=== PATIENT | male | born 1985 | race Two or more races ===

== ENCOUNTER → 2018-10-16 | Outpatient (CLI) | payer OTHER | END | disposition home or self-care (01) | LOC: ECT 09:15 | DX: F33.2 Major depressive disorder, recurrent severe without psychotic features (principal); G47.33 Obstructive sleep apnea (adult) (pediatric); E11.9 Type 2 diabetes mellitus without complications; I10 Essential (primary) hypertension; K76.0 Fatty (change of) liver, not elsewhere classified ==

== ENCOUNTER 2018-10-31 08:35 | Outpatient (RCR) | payer OTHER ==
[~2018-10-31] VITALS: Ht 188 cm; Wt 187.8 kg
[2018-10-31] MEDS ORDERED: Succinylcholine 20mg/ml 10ml vial ONE ×2 (08:36)
[2018-10-31] MEDS ORDERED: Methohexital Sodium 500mg Vial IVP ONE (08:36)
[2018-10-31] MEDS ORDERED: Methohexital Sodium Syr 100mg/10ml IVP ONE (08:36)
[2018-10-31] MEDS ORDERED: NS 500ML ONE ×2 (08:36)
[2018-10-31] MEDS ORDERED: Ketorolac 60mg Inj IM ONE ×2 (08:36)
[2018-10-31] MEDS ORDERED: Midazolam 2mg/2ml Inj ONE ×2 (08:36)
[2018-10-31 09:48] VITALS: BP 136/85
[2018-10-31] MEDS ORDERED: Ketorolac 30mg Inj IV SCH (10:03)
[2018-10-31 10:05] VITALS: BP 173/59
[2018-10-31 10:10] VITALS: BP 192/76
[2018-10-31 10:15] VITALS: BP 159/69
[2018-10-31 10:20] VITALS: BP 167/64
[2018-10-31 13:07] VITALS: BP 136/85
[2018-11-02] MEDS ORDERED: Succinylcholine 20mg/ml 10ml vial ONE (07:00)
[2018-11-02] MEDS ORDERED: Methohexital Sodium Syr 100mg/10ml IVP ONE (07:00)
[2018-11-02] MEDS ORDERED: NS 500ML ONE (07:00)
[2018-11-02] MEDS ORDERED: Midazolam 2mg/2ml Inj ONE (07:00)
[2018-11-02] MEDS ORDERED: Ketorolac 60mg Inj IM ONE (07:00)
[2018-11-02 09:46] VITALS: BP 139/81
[2018-11-02 10:00] VITALS: BP 154/68
[2018-11-02 10:05] VITALS: BP 164/54
[2018-11-02 10:10] VITALS: BP 141/70
[2018-11-02 10:15] VITALS: BP 154/73
[2018-11-05] MEDS ORDERED: Succinylcholine 20mg/ml 10ml vial ONE (08:00)
[2018-11-05] MEDS ORDERED: Midazolam 2mg/2ml Inj ONE (08:00)
[2018-11-05] MEDS ORDERED: Ketorolac 60mg Inj IM ONE (08:00)
[2018-11-05] MEDS ORDERED: Methohexital Sodium Syr 100mg/10ml IVP ONE (08:00)
[2018-11-05] MEDS ORDERED: NS 500ML ONE (08:00)
[2018-11-05 10:32] VITALS: BP 149/76
[2018-11-05 10:45] VITALS: BP 179/70
[2018-11-05 10:50] VITALS: BP 163/68
[2018-11-05 10:55] VITALS: BP 179/73
[2018-11-05 11:00] VITALS: BP 171/85
[2018-11-07 07:04] VITALS: BP 162/95
[2018-11-07 07:20] VITALS: BP 146/48
[2018-11-07 07:25] VITALS: BP 139/80
[2018-11-07 07:30] VITALS: BP 136/48
[2018-11-07 07:35] VITALS: BP 141/58
[2018-11-07] MEDS ORDERED: Midazolam 2mg/2ml Inj ONE (08:00)
[2018-11-07] MEDS ORDERED: Methohexital Sodium Syr 100mg/10ml IVP ONE (08:00)
[2018-11-07] MEDS ORDERED: NS 500ML ONE (08:00)
[2018-11-07] MEDS ORDERED: Succinylcholine 20mg/ml 10ml vial ONE (08:00)
[2018-11-07] MEDS ORDERED: Ketorolac 60mg Inj IM ONE (08:00)
[2018-11-09 09:55] VITALS: BP 163/87
[2018-11-09 10:20] VITALS: BP 172/87
[2018-11-09 10:25] VITALS: BP 143/38
[2018-11-09 10:30] VITALS: BP 156/60
[2018-11-09 10:35] VITALS: BP 162/82
[2018-11-12] MEDS ORDERED: NS 500ML ONE (06:00)
[2018-11-12] MEDS ORDERED: Midazolam 2mg/2ml Inj ONE (06:00)
[2018-11-12] MEDS ORDERED: Ketorolac 60mg Inj IM ONE (06:00)
[2018-11-12] MEDS ORDERED: Succinylcholine 20mg/ml 10ml vial ONE (06:00)
[2018-11-12] MEDS ORDERED: Methohexital Sodium Syr 100mg/10ml IVP ONE (06:00)
[2018-11-12 11:48] VITALS: BP 138/63
[2018-11-12] MEDS ORDERED: Atropine Sulfate 0.4mg/ml inj IVP PRN (12:14)
[2018-11-12 12:15] VITALS: BP 142/41
[2018-11-12 12:20] VITALS: BP 138/65
[2018-11-12 12:25] VITALS: BP 148/74
[2018-11-12 12:30] VITALS: BP 148/74
[2018-11-14] MEDS ORDERED: Midazolam 2mg/2ml Inj ONE (06:00)
[2018-11-14] MEDS ORDERED: Midazolam HCl 50mg/10ml vial IV ONE (07:00)
[2018-11-14] MEDS ORDERED: Succinylcholine 20mg/ml 10ml vial ONE (07:00)
[2018-11-14] MEDS ORDERED: Methohexital Sodium Syr 100mg/10ml IVP ONE (07:00)
[2018-11-14] MEDS ORDERED: NS 500ML ONE (07:00)
[2018-11-14] MEDS ORDERED: Ketorolac 60mg Inj IM ONE (07:00)
[2018-11-14 10:29] VITALS: BP 169/84
[2018-11-14 10:55] VITALS: BP 188/85
[2018-11-14 11:00] VITALS: BP 178/86
[2018-11-14 11:05] VITALS: BP 177/88
[2018-11-14 11:10] VITALS: BP 173/81
[2018-11-16] MEDS ORDERED: Methohexital Sodium Syr 100mg/10ml IVP ONE (07:00)
[2018-11-16] MEDS ORDERED: NS 500ML ONE (07:00)
[2018-11-16] MEDS ORDERED: Ketorolac 60mg Inj IM ONE (07:00)
[2018-11-16] MEDS ORDERED: Succinylcholine 20mg/ml 10ml vial ONE (07:00)
[2018-11-16] MEDS ORDERED: Midazolam 2mg/2ml Inj ONE (07:00)
[2018-11-16 10:25] VITALS: BP 156/80
[2018-11-16] MEDS ORDERED: Atropine Sulfate 0.4mg/ml inj IVP PRN (10:48)
[2018-11-16 10:50] VITALS: BP 170/67
[2018-11-16 10:55] VITALS: BP 156/70
[2018-11-16 11:00] VITALS: BP 158/74
[2018-11-16 11:05] VITALS: BP 152/68
== END 2018-11-18 | disposition home or self-care (01) ==
LOC: ECT 08:35
DX: F33.2 Major depressive disorder, recurrent severe without psychotic features (principal); G47.33 Obstructive sleep apnea (adult) (pediatric); I10 Essential (primary) hypertension; E11.9 Type 2 diabetes mellitus without complications; K76.0 Fatty (change of) liver, not elsewhere classified
CPT/HCPCS: 90870; J0330; J2250; J2405; J3490; J7040

== ENCOUNTER 2018-11-19 06:22 | Outpatient (RCR) | payer OTHER ==
[~2018-11-19] VITALS: Ht 188 cm; Wt 187.8 kg
[2018-11-19] MEDS ORDERED: Methohexital Sodium Syr 100mg/10ml IVP ONE (06:23)
[2018-11-19] MEDS ORDERED: Midazolam 2mg/2ml Inj ONE ×2 (06:23)
[2018-11-19] MEDS ORDERED: NS 500ML ONE ×2 (06:23)
[2018-11-19] MEDS ORDERED: Glycopyrrolate 0.2mg/ml 1ml Vial ONE ×2 (06:23)
[2018-11-19] MEDS ORDERED: Ketorolac 60mg Inj IM ONE ×2 (06:23)
[2018-11-19] MEDS ORDERED: Succinylcholine 20mg/ml 10ml vial ONE ×2 (06:23)
[2018-11-19 10:24] VITALS: BP 163/90
[2018-11-19 10:45] VITALS: BP 183/81
[2018-11-19 10:50] VITALS: BP 168/75
[2018-11-19 10:55] VITALS: BP 169/88
[2018-11-19 11:00] VITALS: BP 171/83
[2018-11-19 11:05] VITALS: BP 160/90
[2018-11-21 07:35] VITALS: BP 168/98
[2018-11-21 07:50] VITALS: BP 185/78
[2018-11-21 07:55] VITALS: BP 173/82
[2018-11-21 08:00] VITALS: BP 175/72
[2018-11-21] MEDS ORDERED: Succinylcholine 20mg/ml 10ml vial ONE (08:00)
[2018-11-21] MEDS ORDERED: Ketorolac 60mg Inj IM ONE (08:00)
[2018-11-21] MEDS ORDERED: Methohexital Sodium Syr 100mg/10ml IVP ONE (08:00)
[2018-11-21] MEDS ORDERED: Midazolam 2mg/2ml Inj ONE (08:00)
[2018-11-21] MEDS ORDERED: NS 500ML ONE (08:00)
[2018-11-21 08:05] VITALS: BP 177/79
[2018-11-23] MEDS ORDERED: Succinylcholine 20mg/ml 10ml vial ONE (09:00)
[2018-11-23] MEDS ORDERED: Methohexital Sodium Syr 100mg/10ml IVP ONE (09:00)
[2018-11-23] MEDS ORDERED: Midazolam 2mg/2ml Inj ONE (09:00)
[2018-11-23] MEDS ORDERED: NS 500ML ONE (09:00)
[2018-11-23] MEDS ORDERED: Ketorolac 60mg Inj IM ONE (09:00)
[2018-11-23] MEDS ORDERED: Glycopyrrolate 0.2mg/ml 1ml Vial ONE (09:00)
[2018-11-23 10:16] VITALS: BP 160/93
[2018-11-23 10:30] VITALS: BP 190/85
[2018-11-23 10:35] VITALS: BP 167/97
[2018-11-23 10:40] VITALS: BP 192/80
[2018-11-23 10:45] VITALS: BP 164/78
[2018-11-26] MEDS ORDERED: NS 500ML ONE (07:00)
[2018-11-26] MEDS ORDERED: Midazolam 2mg/2ml Inj ONE (07:00)
[2018-11-26] MEDS ORDERED: Methohexital Sodium Syr 100mg/10ml IVP ONE (07:00)
[2018-11-26] MEDS ORDERED: Ketorolac 60mg Inj IM ONE (07:00)
[2018-11-26] MEDS ORDERED: Succinylcholine 20mg/ml 10ml vial ONE (07:00)
[2018-11-26] MEDS ORDERED: Glycopyrrolate 0.2mg/ml 1ml Vial ONE (07:00)
[2018-11-26 10:42] VITALS: BP 154/89
[2018-11-26 11:00] VITALS: BP 180/89
[2018-11-26 11:05] VITALS: BP 173/80
[2018-11-26 11:10] VITALS: BP 155/77
[2018-11-26 11:15] VITALS: BP 169/68
[2018-11-28 11:31] VITALS: BP 164/87
[2018-11-28 11:50] VITALS: BP 162/78
[2018-11-28 11:55] VITALS: BP 155/90
[2018-11-28 12:00] VITALS: BP 160/71
[2018-11-28 12:05] VITALS: BP 162/76
[2018-12-05] MEDS ORDERED: Glycopyrrolate 0.2mg/ml 1ml Vial ONE (07:00)
[2018-12-05] MEDS ORDERED: Succinylcholine 20mg/ml 10ml vial ONE (07:00)
[2018-12-05] MEDS ORDERED: Midazolam 2mg/2ml Inj ONE (07:00)
[2018-12-05] MEDS ORDERED: Methohexital Sodium Syr 100mg/10ml IVP ONE (07:00)
[2018-12-05] MEDS ORDERED: NS 500ML ONE (07:00)
[2018-12-05] MEDS ORDERED: Ketorolac 60mg Inj IM ONE (07:00)
[2018-12-05 10:02] VITALS: BP 165/89
[2018-12-05 10:15] VITALS: BP 168/91
[2018-12-05 10:20] VITALS: BP 170/97
[2018-12-05 10:25] VITALS: BP 180/82
[2018-12-05 10:30] VITALS: BP 181/92
== END 2018-12-18 | disposition home or self-care (01) ==
LOC: ECT 06:22
DX: F33.2 Major depressive disorder, recurrent severe without psychotic features (principal)
CPT/HCPCS: 90870; J0330; J2250; J2405; J7040

== ENCOUNTER 2018-12-19 06:42 | Outpatient (RCR) | payer OTHER | END 2019-01-18 | disposition home or self-care (01) | LOC: ECT 06:42 | DX: Z53.9 Procedure and treatment not carried out, unspecified reason (principal) ==